=== PATIENT | female | born 1965 | race Caucasian/White ===

== ENCOUNTER → 2018-01-25 | Outpatient (CLI) | payer BC ==
[~2018-01-25] MED LIST: ALBU2.5V36 INH; ALBUDR INH; ASP325 PO; AZE137NAPT NS; BACDS PO; BUDE10.2 IH; BUDE10.2 INH; BUTA-324 PO; CALC-649 PO; CEF300 PO; CEP500 PO; CICL6.1H7 IH; CIP500 PO; DIHY1SPR3 NS; DUL20 PO; DULO60CA51 PO; ESTR-25 PO; FISH OIL1 CAP PO; FLUT16SP20 NS; FROV2.5T6 PO; GLUC-198 PO; HERBAL; HYDR-2966 PO; HYDR-3140 PO; HYDR-3503 PO; HYDR-385 PO; HYDR2TAB4 PO; IBU800 PO; INHALER; IPRA3AMP36 IH; LEVO5PT PO; LOR10 PO; LOSA25TA52 PO; METO50TA19 PO; MULT-1335 PO; ONAB100V4 IJ; ONDA4TAB PO; OXYC-717 PO; OXYC1TAB54 PO; PER PO; PHEN-530 PO; PRE20 PO; PREDNISON; PREG25 FT; PREG25 PO; PREG50CA48 PO; PULMACORT; SUMA4PEN3 SQ; TIO18R INH; UBID100C33 PO; VERA240C12; XOPENEX; ZOLM2.5 PO; [UNRECOGNIZED DRUG - CODE] INH; [UNRECOGNIZED DRUG - CODE] PO; [UNRECOGNIZED DRUG - OTHER] PO; [UNRECOGNIZED DRUG - OTHER] PO
--- NOTE | 2018-01-26 10:08 | RADIOLOGY IMAGING REPORT ---
FACILITY: [facility] - [place] PATIENT NAME: LAUREL RUBIN : [id number] MR: [id number] V: [id number] EXAM DATE: ORDERING PHYSICIAN: TREV KO TECHNOLOGIST: Tanisha Agarwal PROCEDURE:BILATERAL DIGITAL SCREENING MAMMOGRAM WITH CAD ASSISTED INTERPRETATION & 3D TOMOSYNTHESIS COMPARISON:Prior mammograms 01/21/16, 07/12/13 & 03/02/11. INDICATIONS:SCREENING FINDINGS: The breast parenchyma is predominantly fatty replaced. Stable benign appearing masses in the upper outer Left breast and a small focus in the upper inner Right breast. There are no new mammographic findings concerning for malignancy. DIAGNOSTIC CATEGORY 2--BENIGN FINDING. RECOMMENDATIONS: ROUTINE MAMMOGRAM AND CLINICAL EVALUATION IN 1 YR. IMPRESSION: BIRADS 2: Benign finding. Dictated by: Landen Dewey on 01/26/2018 at 9:19 Transcribed by: MAURICE on 01/26/2018 at 9:50 Approved by: Landen Dewey on 01/26/2018 at 10:07 [facility]
== END ==
LOC: MAMO 01:17
PROVIDERS: ATTEND Physician Assistant
DX: Z12.31 Encounter for screening mammogram for malignant neoplasm of breast (principal); Z80.3 Family history of malignant neoplasm of breast
CPT/HCPCS: 77063; 77067

== ENCOUNTER → 2018-01-25 | Outpatient (CLI) | payer BC ==
[~2018-01-25] MED LIST changes: +GADOBENATE 529MG/1ML 15ML VIAL IVP ONE; -ONAB100V4 IJ; -SUMA4PEN3 SQ
--- NOTE | 2018-01-25 10:20 | RADIOLOGY IMAGING REPORT ---
[place] [facility] [place] NAME[place] Cindy Fuentes : 1965 MR: [id number] V: [id number] EXAM DATE: ORDERING PHYSICIAN: KAMILLE DUMONT TECHNOLOGIST: Location: [facility] [place] Patient: Cindy Fuentes : 1965 Visit/Account:[id number] Date of Sevice: 01/25/2018 EXAMINATION: MRI brain without IV contrast MRI brain with IV contrast HISTORY: Cavernous malformation. COMPARISON: Brain MRI from 01/21/2016. TECHNIQUE: Multi-planar, multi-sequence brain MRI was performed before and after IV gadolinium. CONTRAST: 15 mL of IV MultiHance gadolinium. FINDINGS: Brain volume: Normal. Sagittal midline structures: Normal. Ventricles: Normal. Acute ischemic changes: No diffusion restriction present to suggest acute ischemia. Hemorrhage: Focal hemosiderin staining in the left frontoparietal region. Masses/edema: There is an 11 mm lesion in the left frontoparietal deep white matter corresponding to the area of hemosiderin staining. There is increased central T1 hyperintensity compared to prior exa ms, without adjacent edema. The lesion is slightly larger from 7 mm. Enhancement: Small enhancing developmental venous anomaly adjacent to the area of hemosiderin stainin g in the left frontoparietal region is unchanged. Siegel-white: Negative. White matter: A few T2/FLAIR hyperintensities in the deep white matter bilaterally. Vessels: Normal. Extra-axial: None. Calvarium/scalp: Negative. Skull base: Negative. Visualized sinuses/orbits: Negative. Visualized upper neck: Fusion hardware in the visualized upper cervical spine. IMPRESSION: 1. 11 mm cavernous malformation in the left frontoparietal region is larger, with findings suggesting interval hemorrhage since prior exam. No adjacent edema. 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 2. No acute hemorrhage or acute infarct. 3. Mild nonspecific white matter disease is unchanged. Differential considerations include the sequel a of chronic migraine headaches, previous inflammation or trauma. Report Dictated By: Toya Valle MD at 01/25/2018 9:44 AM Report E-Signed By: Toya Valle MD at 01/25/2018 10:16 AM WSN:[id number]
== END ==
LOC: MRI 01-15 03:04
PROVIDERS: ATTEND Nurse Practitioner
DX: Q28.3 Other malformations of cerebral vessels (principal)
CPT/HCPCS: 70553; A9577

== ENCOUNTER 2018-01-29 16:03 | Emergency (ER) | payer BC ==
[~2018-01-29 16:03] MED LIST changes: -GADOBENATE 529MG/1ML 15ML VIAL IVP ONE
--- NOTE | 2018-01-29 16:13 | ER Report ---
History and Physical Time Seen By MD: 16:13 Hx. of Stated Complaint: patient reports a migrane for 5 days. she cannot get it under contol HPI/ROS CHIEF COMPLAINT: Migraine HISTORY OF PRESENT ILLNESS: 52-year-old female patient presents to emergency room with complaint of migraine. Patient states that she has been having a migraine for the past 5 days. States that migraine is significant. She states that this is not worse than any of her other headaches. Patient states that she just wants her headache gone. She states that she has taken all of her trip tendons which she has available. She's tried Compazine all with no improvement. She denies having any fevers, chills, nausea vomiting or diarrhea. Patient states she does have an appointment with a doctor in [place] on Monday. She states she does not feel that she is able to go down to [place] at this time due to her headache. REVIEW OF SYSTEMS: Respiratory: No cough, no dyspnea. Cardiovascular: No chest pain, no palpitations. Gastrointestinal: No vomiting, no abdominal pain. Musculoskeletal: No back pain. Allergies: Coded Allergies: codeine (Verified Allergy, Unknown, DIARRHEA, 07/16/14) Home Meds Reported Medications Onabotulinumtoxina (BOTOX) 100 Unit Vial, 100 UNIT IJ, VIAL 01/29/18 Sumatriptan Succinate (IMITREX) 4 Mg/0.5 Ml Pen.injctr, 4 MG SQ 01/29/18 Pregabalin (LYRICA) 25 Mg Cap, 25 MG FT, CAP 08/11/16 Budesonide/Formoterol Fumarate (SYMBICORT 160-4.5 MCG INHALER) 10.2 Gm Inh, 10.2 GM INH, INH 08/11/16 Albuterol Sulfate 0.083% (ALBUTEROL SULFATE 0.083%) 2.5 Mg/3 Ml Vial.neb, 2.5 MG INH, INH 08/11/16 Hydrocodone Bit/Acetaminophen (HYDROCODON-ACETAMINOPHEN 5-325) 1 Each Tablet, 1-2 EACH PO Q4-6H, TAB 08/11/16 Tiotropium [place] (SPIRIVA) 18 Mcg/Cap Inh, 18 MCG INH, INH 08/11/16 Verapamil HCl (Verapamil Sr) 240 Mg Cap24h.pel, 120 QDAY 08/11/16 Hydrochlorothiazide (HYDROCHLOROTHIAZIDE) 25 Mg Tablet, 1 TAB PO QDAY, TAB 08/11/16 Duloxetine Hcl (CYMBALTA) 20 Mg Capcr, 20 MG PO QDAY, #5 CAP TAKE 1 CAPSULE BY MOUTH EVERY DAY 02/13/13 Frovatriptan Succinate (Frova) 2.5 Mg Tablet, 2.5 MG PO, 0 Refills 02/02/11 Discontinued Reported Medications Losartan Potassium (LOSARTAN POTASSIUM) 25 Mg Tablet, 25 MG PO QDAY 08/11/16 Metoprolol Succinate (METOPROLOL SUCCINATE) 50 Mg Tab.er.24h, 75 TAB PO QDAY, TAB 08/11/16 Past Medical/Surgical History Patient has a past medical history of a brain bleed, migraines, irregular heartbeat, asthma, pneumonia, reflux hiatal hernia, thyroid nodules, alcohol use. Patient has a surgical history of back surgery, neck surgery, left ankle surgery, right knee surgery, right wrist surgery, tubal ligation, appendectomy, fundoplication. Patient has a family medical history of diabetes. Reviewed Nurses Notes: Yes Hx Smoking: No Smoking Status: Former Smoker Hx Substance Use Disorder: No Hx Alcohol Use: Yes Constitutional Vital Sign - Last 24 Hours 01/29/18 01/29/18 01/29/18 01/29/18 16:08 16:08 16:30 16:33 Temp 98.2 Pulse 88 84 Resp 20 B/P (MAP) 144/97 144/97 (113) 117/88 (98) Pulse Ox 90 86 O2 Delivery Room Air 01/29/18 01/29/18 01/29/18 01/29/18 17:00 17:03 17:30 17:30 Pulse 74 B/P (MAP) 110/84 (93) 121/79 (93) Pulse Ox 96 O2 Flow Rate 2.0 01/29/18 01/29/18 01/29/18 01/29/18 17:33 17:38 18:00 18:08 Pulse 85 78 82 B/P (MAP) 89/80 (83) Pulse Ox 92 94 92 01/29/18 01/29/18 01/29/18 01/29/18 18:30 18:38 18:43 18:58 Pulse 84 82 B/P (MAP) 138/90 (106) Pulse Ox 94 93 92 01/29/18 01/29/18 01/29/18 19:00 19:13 19:28 Pulse 86 82 B/P (MAP) 125/99 (108) Pulse Ox 91 91 Physical Exam General Appearance: The patient is alert, has no immediate need for airway protection and no current signs of toxicity. Eyes: Pupils equal and round no injection. Respiratory: Chest is non tender, lungs are clear to auscultation. Cardiac: regular rate and rhythm Gastrointestinal: Abdomen is soft and non tender, no masses, bowel sounds normal. Musculoskeletal: Neck: Neck is supple and non tender. Extremities have full range of motion and are non tender. Skin: No rashes or lesions. Neuro: Patient is alert and oriented 4, cranial nerves II through XII grossly intact. DIFFERENTIAL DIAGNOSIS: After history and physical exam differential diagnosis was considered for headache including but not limited to subarachnoid hemorrhage, migraine headache, tension headache and infectious causes such as meningitis, pharyngitis and sinusitis. Medical Decision Making Data Points Result Diagram: 01/29/18 1703 01/29/18 1703 Laboratory Hematology Test 01/29/18 17:03 Red Blood Count 4.62 M/uL (4.17-5.56) Mean Corpuscular Volume 89.4 fL (80.0-96.0) Mean Corpuscular Hemoglobin 29.7 pg (26.0-33.0) Mean Corpuscular Hemoglobin Concent 33.2 g/dL (32.0-36.0) Red Cell Distribution Width 14.5 % (11.5-14.5) Mean Platelet Volume 7.0 fL (7.2-11.1) Neutrophils (%) (Auto) 77.2 % (39.4-72.5) Lymphocytes (%) (Auto) 13.4 % (17.6-49.6) Monocytes (%) (Auto) 6.7 % (4.1-12.4) Eosinophils (%) (Auto) 2.5 % (0.4-6.7) Basophils (%) (Auto) 0.2 % (0.3-1.4) Nucleated RBC Relative Count (auto) 0.0 /100WBC Neutrophils # (Auto) 7.2 K/uL (2.0-7.4) Lymphocytes # (Auto) 1.3 K/uL (1.3-3.6) Monocytes # (Auto) 0.6 K/uL (0.3-1.0) Eosinophils # (Auto) 0.2 K/uL (0.0-0.5) Basophils # (Auto) 0.0 K/uL (0.0-0.1) Nucleated RBC Absolute Count (auto) 0.00 K/uL Erythrocyte Sedimentation Rate 4 mm/HOUR (0-30) Sodium Level 138 mmol/L (137-145) Potassium Level 3.2 mmol/L (3.5-5.0) Chloride Level 102 mmol/L (98-107) Carbon Dioxide Level 32 mmol/L (22-31) Blood Urea Nitrogen 11 mg/dl (7-18) Creatinine 0.80 mg/dl (0.52-1.04) Glomerular Filtration Rate Calc > 60.0 Random Glucose 100 mg/dl (75-110) Calcium Level 9.2 mg/dl (8.4-10.2) Total Bilirubin 0.3 mg/dl (0.2-1.3) Aspartate Amino Transf (AST/SGOT) 27 U/L (0-35) Alanine Aminotransferase (ALT/SGPT) 42 U/L (0-56) Alkaline Phosphatase 67 U/L (0-126) Total Protein 6.1 g/dl (6.3-8.2) Albumin 3.5 g/dl (3.5-5.0) Chemistry Test 01/29/18 17:03 White Blood Count 9.3 k/uL (4.5-11.0) Red Blood Count 4.62 M/uL (4.17-5.56) Hemoglobin 13.7 g/dL (12.0-16.0) Hematocrit 41.3 % (34.0-47.0) Mean Corpuscular Volume 89.4 fL (80.0-96.0) Mean Corpuscular Hemoglobin 29.7 pg (26.0-33.0) Mean Corpuscular Hemoglobin Concent 33.2 g/dL (32.0-36.0) Red Cell Distribution Width 14.5 % (11.5-14.5) Platelet Count 273 K/uL (150-450) Mean Platelet Volume 7.0 fL (7.2-11.1) Neutrophils (%) (Auto) 77.2 % (39.4-72.5) Lymphocytes (%) (Auto) 13.4 % (17.6-49.6) Monocytes (%) (Auto) 6.7 % (4.1-12.4) Eosinophils (%) (Auto) 2.5 % (0.4-6.7) Basophils (%) (Auto) 0.2 % (0.3-1.4) Nucleated RBC Relative Count (auto) 0.0 /100WBC Neutrophils # (Auto) 7.2 K/uL (2.0-7.4) Lymphocytes # (Auto) 1.3 K/uL (1.3-3.6) Monocytes # (Auto) 0.6 K/uL (0.3-1.0) Eosinophils # (Auto) 0.2 K/uL (0.0-0.5) Basophils # (Auto) 0.0 K/uL (0.0-0.1) Nucleated RBC Absolute Count (auto) 0.00 K/uL Erythrocyte Sedimentation Rate 4 mm/HOUR (0-30) Glomerular Filtration Rate Calc > 60.0 Calcium Level 9.2 mg/dl (8.4-10.2) Total Bilirubin 0.3 mg/dl (0.2-1.3) Aspartate Amino Transf (AST/SGOT) 27 U/L (0-35) Alanine Aminotransferase (ALT/SGPT) 42 U/L (0-56) Alkaline Phosphatase 67 U/L (0-126) Total Protein 6.1 g/dl (6.3-8.2) Albumin 3.5 g/dl (3.5-5.0) ED Course/Re-evaluation ED Course Patient was admitted to an exam room, history and physical were obtained. Differential diagnoses were considered. On examination lungs are clear, heart is regular, abdomen soft nontender. Patient is alert and oriented 4, cranial nerves II through XII grossly intact. An IV was started, CBC, CMP, ESR, CRP were done. The results were unremarkable. Patient received a liter of normal saline, she received 50 mg of Toradol, 30 mg of Norflex, 4 mg of Decadron, 4 mg of Zofran and 25 mg of Benadryl. On reevaluation patient states she had slight improvement in her headache. States the headache is still there. We did give the patient 5 mg of IM Zyprexa. On reevaluation patient states she had improvement in her headache. She states it went to an 8 out of 10. We continued to monitor the patient for approximately 30-40 minutes. At which time patient states she is feeling better. She says the pain is down to a 7 out of 10. She would like to go ahead and go home. I discussed with her that that sleep often times is a thing that helps the most with getting rid of migraines. She says she feels that she can go home and sleep. We will go ahead and discharge her at this time. Decision to Disposition Date: Jan 29, 2018 Decision to Disposition Time: 19:18 Depart Departure Latest Vital Signs Vital Signs Date Time Temp Pulse Resp B/P (MAP) Pulse Ox O2 Delivery O2 Flow Rate FiO2 01/29/18 19:28 82 91 01/29/18 19:00 125/99 (108) 01/29/18 17:30 2.0 01/29/18 16:08 98.2 20 Room Air Impression: Primary Impression: Migraine Condition: Improved Disposition: HOME OR SELF-CARE Referrals: JAEL TAYLOR DO (PCP) Patient Instructions: Migraine Headache (ED) Additional Instructions: Continue with your current medications. Follow up with your primary care provider in the next week. Return to the ER if condition worsens. Get plenty of rest. Increase fluid intake. Monitor for known triggers to your migraines and avoid those. Problem Qualifiers Primary Impression: Migraine Migraine type: without aura Status migrainosus presence: without status migrainosus Intractability: not intractable Qualified Codes: G43.009 - Migraine without aura, not intractable, without status migrainosus KELTON TOVAR Jan 29, 2018 16:13
[2018-01-29] MEDS ORDERED: SUMA4PEN3 SQ (16:17)
[2018-01-29] MEDS ORDERED: ONAB100V4 IJ (16:17)
[2018-01-29] MEDS ORDERED: NS(*) 0.9% 1000 ML BAG 1,000 ML IV ONE (16:34)
[2018-01-29] MEDS ORDERED: ONDANSETRON 4 MG/2 ML VIAL IVP ONE (16:35)
[2018-01-29] MEDS ORDERED: diphenhydrAMINE 50 MG/ML VIAL IVP ONE (16:35)
[2018-01-29] MEDS ORDERED: KETOROLAC 15 MG/ML VIAL IVP ONE (16:35)
[2018-01-29] MEDS ORDERED: DEXAMETHASONE SOD 4 MG/ML VIAL PO ONE (16:35)
[2018-01-29] MEDS ORDERED: ORPHENADRINE 60MG/2ML INJ IVP ONE (16:35)
[2018-01-29 17:13] LABS: PLATELET COUNT, AUTOMATED 273 K/uL (150-450)
[2018-01-29] MEDS ORDERED: OLANZapine 10 MG VIAL IM ONLY ONE (17:55)
[2018-01-29] MEDS ORDERED: WATER STERILE 10 ML VIAL IM ONLY ONE (17:55)
[2018-01-29 19:00] VITALS: BP 125/99
== END 2018-01-29 19:40 | disposition home or self-care (01) ==
LOC: ER 16:14
DX: G43.009 Migraine without aura, not intractable, without status migrainosus (principal)
CPT/HCPCS: 85025; 85651; 96361; 96372; 96374; 96375; 99284; A4216; J1100; J1200; J1885; J2360; J2405; J3490; J7030; 82040; 82247; 82310; 82374; 82435; 82565; 82947; 84075; 84132; 84155; 84295; 84450; 84460; 84520

== ENCOUNTER → 2018-03-01 | Outpatient (REF) | payer BC ==
[~2018-03-01] MED LIST changes: +ONAB100V4 IJ; +SUMA4PEN3 SQ
== END ==
LOC: ZZSENDIN 16:41
PROVIDERS: ATTEND Family Medicine
DX: I10 Essential (primary) hypertension (principal)
CPT/HCPCS: 82310; 82374; 82435; 82565; 82947; 84132; 84295; 84520

== ENCOUNTER → 2018-05-08 | Outpatient (CLI) | payer BC ==
[~2018-05-08] MED LIST changes: -LOSA25TA52 PO; +LOSA25TA57 PO
== END ==
LOC: LAB 15:32
PROVIDERS: ATTEND Internal Medicine
DX: E04.2 Nontoxic multinodular goiter (principal)
CPT/HCPCS: 36415; 84439; 84443; 84481

== ENCOUNTER 2018-06-21 09:49 | Emergency (ER) | payer BC ==
[~2018-06-21 09:49] MED LIST changes: -PREG25 FT
--- NOTE | 2018-06-21 09:57 | ER Report ---
History and Physical Time Seen By MD: 09:57 HPI/ROS CHIEF COMPLAINT: Headache HISTORY OF PRESENT ILLNESS: Patient is a 53-year-old female with a history of migraines here with complaints of persistent migraine for the past 3 days with neck paraspinal muscle spasm. Patient reportedly is taking her sumatriptan, Benadryl, NSAIDs over the course of the last 2 days without appreciable relief of symptoms. Patient reports photophobia, right-sided headache consistent with prior migraines. Denies focal neurological findings. REVIEW OF SYSTEMS: Constitutional: No fever, no chills. Eyes: + photosensitivity ENT: No sore throat. Cardiovascular: No chest pain, no palpitations. Respiratory: No cough, no shortness of breath. Gastrointestinal: No abdominal pain, no vomiting. Genitourinary: No hematuria. Musculoskeletal: No back pain. Skin: No rashes. Neurological: No focal deficits, + right temporal headache Allergies: Coded Allergies: codeine (Verified Allergy, Unknown, DIARRHEA, 06/21/18) Home Meds Reported Medications Galcanezumab-Gnlm (Emgality Syringe) 120 Mg/Ml Syringe, 120 MG SQ Q30D 06/21/18 Lorazepam (LORAZEPAM) 1 Mg Tab, 1 MG PO PRN PRN for MIGRAINE 06/21/18 Cyclobenzaprine Hcl (CYCLOBENZAPRINE HCL) 5 Mg Tablet, 5 MG PO PRN PRN for MIGRAINE 06/21/18 Eletriptan HBr (Eletriptan HBr) 40 Mg Tablet, 40 MG PO PRN PRN for MIGRAINE 06/21/18 Onabotulinumtoxina (BOTOX) 100 Unit Vial, 100 UNIT IJ, VIAL 01/29/18 Sumatriptan Succinate (IMITREX) 4 Mg/0.5 Ml Pen.injctr, 4 MG SQ PRN for MIGRAINE 01/29/18 Pregabalin (LYRICA) 25 Mg Cap, 25 MG PO PRN PRN for MIGRAINE, CAP 08/11/16 Budesonide/Formoterol Fumarate (SYMBICORT 160-4.5 MCG INHALER) 10.2 Gm Inh, 10.2 GM INH, INH 08/11/16 Albuterol Sulfate 0.083% (ALBUTEROL SULFATE 0.083%) 2.5 Mg/3 Ml Vial.neb, 2.5 MG INH, INH 08/11/16 Hydrocodone Bit/Acetaminophen (HYDROCODON-ACETAMINOPHEN 5-325) 1 Each Tablet, 1- 2 EACH PO Q4-6H, TAB 08/11/16 Tiotropium [place] (SPIRIVA) 18 Mcg/Cap Inh, 18 MCG INH, INH 08/11/16 Verapamil HCl (Verapamil Sr) 240 Mg Cap24h.pel, 120 QDAY 08/11/16 Hydrochlorothiazide (HYDROCHLOROTHIAZIDE) 25 Mg Tablet, 1 TAB PO QDAY, TAB 08/11/16 Duloxetine Hcl (CYMBALTA) 20 Mg Capcr, 60 MG PO QDAY, #5 CAP TAKE 1 CAPSULE BY MOUTH EVERY DAY 02/13/13 Frovatriptan Succinate (Frova) 2.5 Mg Tablet, 2.5 MG PO, 0 Refills 02/02/11 Hx Smoking: No Smoking Status: Former Smoker Hx Substance Use Disorder: No Hx Alcohol Use: Yes Constitutional Vital Sign - Last 24 Hours 06/21/18 06/21/18 06/21/18 06/21/18 09:49 10:00 10:02 10:19 Temp 98.1 Pulse 89 105 88 Resp 15 B/P (MAP) 160/95 (116) 160/95 Pulse Ox 88 O2 Delivery Room Air 06/21/18 06/21/18 06/21/18 06/21/18 10:43 10:49 10:54 11:00 Pulse 90 87 B/P (MAP) 129/99 (109) 129/79 (96) Pulse Ox 94 06/21/18 06/21/18 06/21/18 06/21/18 11:24 11:30 11:54 12:00 Pulse 82 78 B/P (MAP) 134/88 (103) 133/87 (102) Pulse Ox 92 91 06/21/18 12:24 Pulse 89 Pulse Ox 97 Intake and Output 06/21/18 06/21/18 06/22/18 15:00 23:00 07:00 Intake Total 1050 ml Balance 1050 ml Physical Exam General Appearance: The patient is alert, has no immediate need for airway protection and no signs of toxicity. Uncomfortable appearing Eyes: Pupils equal and round no pallor or injection. ENT, Mouth: Mucous membranes are moist. Respiratory: There are no retractions, lungs are clear to auscultation. Cardiovascular: Regular rate and rhythm. [ ] Gastrointestinal: Abdomen is soft and non tender, no masses, bowel sounds normal. Neurological: No focla deficits, moving all extremities Skin: Warm and dry, no rashes. Musculoskeletal: Neck is supple non tender. Extremities are nontender, nonswollen and have full range of motion. DIFFERENTIAL DIAGNOSIS: After history and physical exam differential diagnosis was considered for headache including but not limited to subarachnoid hemorrhage, migraine headache, tension headache and infectious causes such as meningitis, pharyngitis and sinusitis. Medical Decision Making ED Course/Re-evaluation ED Course Patient is a 53-year-old female here with several day history of migraine headache with typical distribution of symptoms right now primarily located in the right temporal region with photosensitivity, nausea without vomiting. Patient had taken her triptan without relief. Patient was given magnesium, Decadron, IV fluid bolus, Benadryl, ketamine, Toradol and Reglan. I did perform a trigger point injection in the paraspinal musculature of the cervical region on the right side at approximately C4 level. Injection included methylprednisone and lidocaine 1% approximately 1 mL of each mixed in a syringe. Patient tolerated procedure well. Patient had moderate relief of symptoms. Return precautions provided. Patient was hemodynamically stable at time of discharge. Close PCP follow-up recommended. Procedure Trigger point injection: A point of maximum tenderness was identified at the level of C4 in the right paraspinal musculature. Site was cleaned using alcohol prep pad. I injected 1 mL of methylprednisolone mixed with 1 mL of 1% lidocaine. Make sure was injected directly into the point of maximum tenderness. Patient tolerated procedure well. Decision to Disposition Date: Jun 21, 2018 Decision to Disposition Time: 11:40 Depart Departure Latest Vital Signs Vital Signs Date Time Temp Pulse Resp B/P (MAP) Pulse Ox O2 Delivery O2 Flow Rate FiO2 06/21/18 12:24 89 97 06/21/18 12:00 133/87 (102) 06/21/18 10:02 98.1 15 Room Air Impression: Primary Impression: Migraine Condition: Improved Disposition: HOME OR SELF-CARE Referrals: JAEL TAYLOR DO (PCP) Patient Instructions: Acute Headache (ED) Additional Instructions: Please continue to aggressively hydrate. Please follow-up with your family doctor in the next 24-48 hours. Please return immediately if you develop fevers, chills, focal neurological deficits including weakness, numbness, visual disturbances. ANGELITA KINGSLEY DO Jun 21, 2018 09:57
[2018-06-21] MEDS ORDERED: METOCLOPRAMIDE 10 MG/2 ML SDV IVP ONE (10:10)
[2018-06-21] MEDS ORDERED: DEXAMETHASONE SOD PHOS 10MG/ML IVP ONE (10:10)
[2018-06-21] MEDS ORDERED: KETOROLAC 30 MG/ML VIAL IVP ONE (10:10)
[2018-06-21] MEDS ORDERED: MAGNESIUM SUL* 2 GM/50 ML IVPB 50 ML IVPB ONE (10:10)
[2018-06-21] MEDS ORDERED: NS(*) 0.9% 1000 ML BAG 1,000 ML IV ONE (10:10)
[2018-06-21] MEDS ORDERED: diphenhydrAMINE 50 MG/ML VIAL IVP ONE (10:10)
[2018-06-21] MEDS ORDERED: methylPREDNIS ACE 40MG/ML VIAL IM ONLY ONE (10:15)
[2018-06-21] MEDS ORDERED: GALC120S SQ (10:18)
[2018-06-21] MEDS ORDERED: ELET40TA PO (10:18)
[2018-06-21] MEDS ORDERED: LOR1 PO (10:18)
[2018-06-21] MEDS ORDERED: CYCL-277 PO (10:18)
[2018-06-21] MEDS ORDERED: KETAMINE HCL-NS 50 MG/5 ML SYR IVP ONE (11:45)
[2018-06-21 12:00] VITALS: BP 133/87
== END 2018-06-21 12:38 | disposition home or self-care (01) ==
LOC: ER 10:21
DX: G43.909 Migraine, unspecified, not intractable, without status migrainosus (principal)
CPT/HCPCS: 96365; 96372; 96375; 99284; J1030; J1100; J1200; J1885; J2765; J3475; J3490; J7030; 96366

== ENCOUNTER → 2018-07-17 | Outpatient (CLI) | payer BC ==
[~2018-07-17] MED LIST changes: +CYCL-277 PO; +ELET40TA PO; +GALC120S SQ; +LOR1 PO
--- NOTE | 2018-07-17 08:57 | RADIOLOGY IMAGING REPORT ---
FACILITY: [facility] PATIENT NAME: Cindy Fuentes : 1965 MR: [id number] V: [id number] EXAM DATE: ORDERING PHYSICIAN: JAEL TALYOR TECHNOLOGIST: Location: [facility] - [place] Patient: Cindy Fuentes : 1965 Visit/Account:[id number] Date of Sevice: 07/17/2018 FOOT 2 VIEW LEFT Given history: Fracture in February 2018. Trauma yesterday with pain and bruising. COMPARISON STUDIES: NONE FINDINGS: Osseous structures: There is evidence of a subacute transverse fracture through the base of the fif th metatarsal. There is some periosteal reaction seen. A fracture line is still visualized. Remain ing osseous structures intact. Joints: normal . Soft tissues: normal . IMPRESSION: Evidence of a subacute healing fracture at the base of the fifth metatarsal. Fracture line is stil l visualized and is unclear whether this represents recurrent fracture through the healing fracture o r incomplete healing of the initial injury in February 2018. Report Dictated By: Barrington Rahman MD at 07/17/2018 8:49 AM Report E-Signed By: Barrington Rahman MD at 07/17/2018 8:53 AM WSN:[email or web address]
== END ==
LOC: RAD 07:59
PROVIDERS: ATTEND Family Medicine
DX: M79.672 Pain in left foot (principal)

== ENCOUNTER → 2018-08-01 | Outpatient (CLI) | payer BC ==
--- NOTE | 2018-08-01 08:58 | RADIOLOGY IMAGING REPORT ---
FACILITY: [facility] PATIENT NAME: Cindy Fuentes : 1965 MR: [id number] V: [id number] EXAM DATE: ORDERING PHYSICIAN: JAEL TAYLOR TECHNOLOGIST: Location: [facility] - [place] Patient: Cindy Fuentes : 1965 Visit/Account:[id number] Date of Sevice: 08/01/2018 FOOT 2 VIEW LEFT History: History of right fifth metatarsal fracture. Comparison study: July 17, 2018. Findings: There is a transverse fracture through the proximal metadiaphyseal region of the left fift h metatarsal with minimal angulation. The findings are similar to those noted on the prior exam. Th ere has been bony resorption consistent with some healing. IMPRESSION: 1. Stable appearance of horizontal fracture involving the proximal metadiaphyseal region of the left fifth metatarsal. The fracture line is well visualized. Report Dictated By: Charlie Pedro MD at 08/01/2018 8:51 AM Report E-Signed By: Charlie Pedro MD at 08/01/2018 8:53 AM WSN:[id number]
--- NOTE | 2018-08-01 09:11 | RADIOLOGY IMAGING REPORT ---
FACILITY[place] [facility] [place]IENT NAME: Cindy Fuentes : 1965 MR: [id number] V: [id number] EXAM DATE: ORDERING PHYSICIAN: JAEL TAYLOR TECHNOLOGIST: Location: Patient: Cindy Fuentes : 1965 Visit/Account:[id number] Date of Sevice: 08/01/2018 DEXA Scan HISTORY: Fracture of the fifth metatarsal. Screening for osteoporosis. COMPARISON: None available. LUMBAR SPINE: The bone mineral density (BMD) measured from L1-L4 correlates with a Z-score of 1.7 and a T-score of 1.8 which is normal as defined by the World Health Organization. The corresponding risk of fracture in the lumbar spine is not increased compared with a young adult reference population. HIP: Bone mineral density (BMD) measured in the left femoral neck region correlates with a Z-score of -0.4 and a T-score of -0.8 which is normal as defined by the World Health Organization. The correspondin g risk of fracture in the hip is not increased compared with a young adult reference population. Bone mineral density (BMD) measured in the left Femoral Neck region measures 0.928 g/cm2. IMPRESSION: 1. Lumbar spine: Normal. 2. Left femoral neck: Normal. 3. Left Femoral Neck: Bone Mineral Density is 0.928 g/cm2 The next DEXA scan of this patient should include the following sites: L1-L4 and left hip. FRAX? WHO Fracture Risk Assessment Tool link: <http://www.shef.ac.uk/FRAX/tool.jsp?locationValue=9> PLEASE NOTE: 1) The World Health Organization defines low BMD as follows: T-score Normal > -1 Osteopenia < -1 and > -2.5 Osteoporosis < -2.5 without fractures Established osteoporosis < -2.5 with fractures 2) In general, you may wish to consider: Diagnosis Treatment Follow-up DEXA Normal BMD Prevention 2-3 years Osteopenia Prevention/therapy 1-2 years Osteoporosis Therapy Yearly 3) Fracture risk estimated from the T-score is more accurate for vertebral fractures (often spontane ous) than for hip fractures. Report Dictated By: Diaz Meyer MD at 08/01/2018 9:04 AM Report E-Signed By: Diaz Meyer MD at 08/01/2018 9:06 AM WSN:[id number]
== END ==
LOC: RAD 08:08
PROVIDERS: ATTEND Family Medicine
DX: Z13.820 Encounter for screening for osteoporosis (principal); S92.355A Nondisplaced fracture of fifth metatarsal bone, left foot, initial encounter for closed fracture
CPT/HCPCS: 77080

== ENCOUNTER → 2018-08-10 | Outpatient (CLI) | payer BC | LOC: LAB 14:39 | PROVIDERS: ATTEND Family Medicine | DX: E05.20 Thyrotoxicosis with toxic multinodular goiter without thyrotoxic crisis or storm (principal); E05.90 Thyrotoxicosis, unspecified without thyrotoxic crisis or storm | CPT/HCPCS: 36415; 84439; 84443; 84481 ==

== ENCOUNTER → 2018-08-22 | Outpatient (CLI) | payer BC ==
--- NOTE | 2018-08-22 15:51 | RADIOLOGY IMAGING REPORT ---
FACILITY: [facility] PATIENT NAME: Cindy Fuentes : 1965 MR: [id number] V: [id number] EXAM DATE: ORDERING PHYSICIAN: JAEL TAYLOR TECHNOLOGIST: Location: [facility] - [place] Patient: Cindy Fuentes : 1965 Visit/Account:[id number] Date of Sevice: 08/22/2018 FOOT 2 VIEW LEFT History: Stress fracture right foot. Comparison study: August 01, 2018 Findings: Again noted is a horizontal fracture through the proximal metadiaphyseal region of the lef t fifth metatarsal. There is lucency suggesting bony resorption. There is no new angulation. The appe arance of the fracture is stable. No additional fractures are noted. IMPRESSION: Stable appearance of horizontal fracture involving the proximal metadiaphyseal region of the left fifth metatarsal. Report Dictated By: Charlie Pedro MD at 08/22/2018 3:46 PM Report E-Signed By: Charlie Pedro MD at 08/22/2018 3:47 PM WSN:[id number]
== END ==
LOC: RAD 14:49
PROVIDERS: ATTEND Family Medicine
DX: M79.672 Pain in left foot (principal)

== ENCOUNTER → 2018-10-16 | Outpatient (CLI) | payer BC ==
--- NOTE | 2018-10-16 09:30 | RADIOLOGY IMAGING REPORT ---
FACILITY: [facility] - [place], [place] PATIENT NAME: Cindy Fuentes : 1965 MR: [id number] V: [id number] EXAM DATE: ORDERING PHYSICIAN: JAEL TAYLOR TECHNOLOGIST: Location: [facility] - [place] Patient: Cindy Fuentes : 1965 Visit/Account:[id number] Date of Sevice: 10/16/2018 FOOT 2 VIEW LEFT Indication: Fracture follow-up Comparison: 08/22/2018 Findings: Two views of the left foot again demonstrate minimally displaced fracture fifth metatarsal proximal s haft. No significant interval change in orientation of the fracture fragments. Decreasing overlying soft tissue swelling. No new abnormalities. Knee radiodensity projects over the dorsal aspect of the hallux phalangeal tuft. IMPRESSION: 1. Grossly stable appearance of a fifth metatarsal fracture without definite interval healing. No n ew displacement or angulation. 2. Radiodensity overlies the hallux phalangeal tuft, correlate with f oreign body. Report Dictated By: Jared Cortes MD at 10/16/2018 9:21 AM Report E-Signed By: Jared Cortes MD at 10/16/2018 9:23 AM WSN:[id number]
== END ==
LOC: RAD 08:54
PROVIDERS: ATTEND Family Medicine
DX: S92.355D Nondisplaced fracture of fifth metatarsal bone, left foot, subsequent encounter for fracture with routine healing (principal)